=== PATIENT | female | born 1940 | race Hispanic/Latino ===

== ENCOUNTER 2017-03-26 12:32 | Outpatient (CLI) | payer MEDICARE ==
--- NOTE | 2017-03-26 16:14 | MMO ---
BILATERAL SCREENING MAMMOGRAM: Date: 03/26/2017 HISTORY: Screening. COMPARISON: Mammograms from 2016, 2014, 2013, and 2012. TECHNIQUE: Bilateral screening CC and MLO mammograms are performed with computer-aided detection. FINDINGS: There are scattered fibroglandular densities. No suspicious mass, architectural distortion, or micr ocalcifications. IMPRESSION: BIRADS 2: Benign Finding(s) Continued annual mammographic screening is recommended. POS: [facility]
--- NOTE | 2017-03-26 16:14 | BD ---
DEXA BONE DENSITY STUDY: Date: 03/26/17 HISTORY: Screening. COMPARISON: None. FINDINGS: Femoral Neck: 0.859 T-Score: 0.1 Z-Score: 2.2 Total Femur: 1.009 T-Score: 0.1 Z-Score: 2.2 WHO Classification: Normal. Lumbar Spine: BMD (g/cm2) L1 0.962 T-Score: -0.3 Z-Score: 1.9 L2 0.934 T-Score: -0.9 Z-Score: 1,6 L3 0.922 T-Score: -1.5 Z-Score: 1.5 L4 0.968 T-Score: -0.8 Z-Score: 1.8 L1-L4 0.947 T-Score: -0.9 Z-Score: 1.6 WHO Classification: Normal. Fracture risk is not increased. IMPRESSION: Normal bone mineral density. POS: [facility]
== END 2017-03-26 12:33 | disposition home or self-care (01) ==
LOC: MAMMO 12:32
PROVIDERS: ATTEND Internal Medicine
DX: Z12.31 Encounter for screening mammogram for malignant neoplasm of breast (principal); Z78.0 Asymptomatic menopausal state
CPT/HCPCS: 77080; G0202; 77067

== ENCOUNTER 2017-11-26 09:12 | Outpatient (CLI) | payer MEDICARE ==
[2017-11-26] MEDS ORDERED: ISOVUE-370 76%-LOCM 1 ML ONE (13:47)
== END 2017-11-26 09:13 | disposition home or self-care (01) ==
LOC: BICCT 09:12
PROVIDERS: ATTEND Internal Medicine Gastroenterology
DX: R10.13 Epigastric pain (principal); R19.7 Diarrhea, unspecified; R63.4 Abnormal weight loss; K21.9 Gastro-esophageal reflux disease without esophagitis; R68.81 Early satiety; K57.30 Diverticulosis of large intestine without perforation or abscess without bleeding
CPT/HCPCS: 74177